=== PATIENT | female | born 1985 | race Caucasian/White ===

== ENCOUNTER 2016-11-26 18:50 | Emergency (ER) | payer MEDICAID ==
[2016-11-26] MEDS ORDERED: FLUCONAZOLE 100 MG TABLET PO ONE (19:20)
[2016-11-26] MEDS ORDERED: FLUCONAZOLE 100 MG TABLET ONE (19:35)
--- NOTE | 2016-11-26 19:40 | ERNOTE ---
ER Female HPI Date of Service: 11/26/16 Stated Complaint: ? YEAST INFECTION Presenting Symptoms: vaginal discharge Time Seen by Provider: 11/26/16 19:08 Source: patient, RN notes reviewed Exam Limitations: no limitations Immunizations: IMMUNIZATION HX Immunizations Up to Date Yes History of Influenza Vaccine No Hx Pneumococcal Vaccination No Allergies/Adverse Reactions: Allergies hydrocodone bitartrate [From Vicodin] Adverse Reaction (Mild, Verified 11/26/16 19:03) N/V morphine Adverse Reaction (Mild, Verified 11/26/16 19:03) N/V codeine Adverse Reaction (Verified 11/26/16 19:03) Itching Home Medications: HOME MEDICATIONS Fluconazole [Diflucan] 150 mg PO ONCE #1 tab 11/26/16 [Last Taken Unknown] Fluticasone Propionate [Flonase] 1 spray NS DAILY 11/26/16 [Last Taken Unknown] Loratadine [Claritin] 10 mg PO DAILY 11/26/16 [Last Taken Unknown] - History of Present Illness Narrative: 31 year old female ambulatory to the ED for vaginal discharge and itching that began yesterday. She reports having a white, clumpy discharge. She tried using Monastat an hour ago, but this caused burning. She states she has had bacterial vaginosis in the past, but has never had anything like this. Date (Duration): 11/25/16 Prior Treatment: Absent: recently seen, currently on antibiotics Review of Systems - Review of Systems Constitutional: Absent: recent illness, fever, chills, malaise EYE: Present: no symptoms reported ENT: Present: no symptoms reported Respiratory: Present: no symptoms reported Cardiology: Present: no symptoms reported Gastrointestinal/Abdominal: Absent: nausea, vomiting, abdominal pain Genitourinary: Present: dysuria, discharge. Absent: frequency, hematuria Musculoskeletal: Absent: back pain, muscle pain Skin: Absent: rash, lesions Neurological: Present: no symptoms reported Endocrine: Present: no symptoms reported Hematologic/Lymphatic: Present: no symptoms reported Psych: Present: no symptoms reported - Patient's Past Medical History Patient History - Medical: No pertinent hx Patient History - Cardiac/Respiratory: No pertinent hx Patient History - Cancer: No Hx of Cancer Patient History - Surgical Procedures: No surgical history Patient History - Other: None LMP (females 10-50): Nexplanon - Family History Mother Family History - Medical: Father Family History - Medical: No pertinent hx - Social History Living Situations: home Abuse History: No History of abuse Psych History: No pertinent hx Smoking Status: Current every day smoker - Immunizations Immunizations Up to Date: Yes Hx Pneumococcal Vaccination: No History of Influenza Vaccine: No Physical Exam - Physical Exam General Appearance: Present: wd/wn, alert, no apparent distress Neck: Present: normal inspection, nontender, supple Respiratory: Present: no respiratory distress, normal breath sounds, no accessory muscle use, lungs clear Cardiovascular/Chest: Present: regular rate, rhythm, no murmur Extremity Exam: Present: normal inspection, normal range of motion, no edema Neurological Exam: Present: alert, oriented, normal mood/affect Skin Exam: Present: normal color, warm/dry ED Progress - Vital Signs Patient's Vital Signs:: I have reviewed the patient's vital signs. Vital Signs: Vital Signs 11/26/16 18:55 Temperature 36.8 C - Progress/Reassessment Chief Complaint: Genitourinary Problem Progress:: Unchanged Plan - Plan Plan: Pelvic exam deferred as patient had just used Monistat and specimens would be of low yield. Will treat empirically for candidiasis with Diflucan. Departure Clinical Impression: Vaginitis Qualifiers: Chronicity: acute Qualified Code(s): N76.0 - Acute vaginitis - Departure Disposition: Home self-care Condition: Good Instructions: Vaginitis, [id number] Additional Instructions: Repeat Difllucan in 3 days Abstain from intercourse for 7 days Prescriptions: Fluconazole [Diflucan] 150 mg PO ONCE #1 tab
[2016-11-26 19:42] VITALS: BP 109/75
== END 2016-11-26 19:45 | disposition home or self-care (01) ==
LOC: ER 18:50
DX: N76.0 Acute vaginitis (principal); F17.200 Nicotine dependence, unspecified, uncomplicated